=== PATIENT | male | born 1985 | race Caucasian/White ===

== ENCOUNTER 2018-03-27 07:21 | Emergency (ER) | payer MEDICAID, OTHER ==
[2018-03-27 07:30] VITALS: BMI 23.8
[2018-03-27 07:38] VITALS: RESP 18
--- NOTE | 2018-03-27 07:38 | ED PDOC ---
Arrival/HPI - General Chief Complaint: Eye Problem Time Seen by Provider: 03/27/18 07:31 Historian: Patient - History of Present Illness Narrative History of Present Illness (Text): 03/27/18 07:38 A 33 year old male, with no significant past medical history, presents to the emergency department with a complaint of mild burning sensation to his face since yesterday. He states that he woke up in the middle of the night with all ergy like symptoms and took Benadryl at around 1 AM. He reports that he woke up this morning with swelling to the left upper eyelid. The patient notes that he does not smoke or drink. The patient denies fevers, chills, headache, dizziness, visual disturbances,, sore throat, cough, congestion, chest pain, shortness of breath, dyspnea on exertion, abdominal pain, nausea, vomiting, diarrhea, neck/back pain, urinary/bowel changes or any other complaint. Time/Duration: Other (Yesterday) Symptom Onset: Sudden Symptom Course: Worsening Activities at Onset: Rest, Light Context: Home Associated Symptoms (Text): 03/27/18 08:14 No bites. He has never experienced this previously. Past Medical History - Provider Review Nursing Documentation Reviewed: Yes - Infectious Disease Hx of Infectious Diseases: None - Tetanus Immunization Tetanus Immunization: Unknown - Cardiac Hx Heart Murmur: Yes - Pulmonary Hx Asthma: Yes Other/Comment: collapsed lung - Psychiatric Hx Substance Use: No - Past Surgical History Past Surgical History: No Previous - Surgical History Hx Orthopedic Surgery: Yes (right arm fx) Other/Comment: left lung - Anesthesia Hx Anesthesia: Yes Hx Anesthesia Reactions: No Hx Malignant Hyperthermia: No - Suicidal Assessment Feels Threatened In Home Enviroment: No Family/Social History - Physician Review Nursing Documentation Reviewed: Yes Family/Social History: No Known Family HX Smoking Status: Never Smoked Hx Alcohol Use: No Hx Substance Use: No Hx Substance Use Treatment: No Allergies/Home Meds Allergies/Adverse Reactions: Allergies No Known Allergies Allergy (Verified 11/12/15 17:49) Review of Systems - Physician Review All systems were reviewed & negative as marked: Yes - Review of Systems Constitutional: absent: Fevers Eyes: Other (Swelling to the left upper eyelid.). absent: Vision Changes ENT: absent: Sore Throat, Sinus Congestion Respiratory: absent: SOB, Cough Cardiovascular: absent: Chest Pain, [place] Gastrointestinal: absent: Abdominal Pain, Stool Changes, Diarrhea, Nausea, Vomiting Genitourinary Male: absent: Urinary Output Changes Musculoskeletal: absent: Back Pain, Neck Pain Neurological: absent: Headache, Dizziness Physical Exam Temperature: Afebrile Blood Pressure: Normal Pulse: Regular Respiratory Rate: Normal Appearance: Positive for: Well-Appearing, Non-Toxic, Comfortable Pain Distress: None Mental Status: Positive for: Alert and Oriented X 3 - Systems Exam Head: Present: Atraumatic, Normocephalic Pupils: Present: PERRL Extroacular Muscles: Present: EOMI Conjunctiva: Present: Normal Ears: Present: NORMAL TM, Normal Canal. No: Erythema, TM Bulging Mouth: Present: Moist Mucous Membranes Pharnyx: No: ERYTHEMA, EXUDATE, TONSILS ENLARGED, Peritonsilar Swelling, Uvular Deviation, Muffled/Hoarse Voice, Strider, Soft Palate/Uvular Edema Neck: Present: Normal Range of Motion Respiratory/Chest: Present: Clear to Auscultation, Good Air Exchange. No: Respiratory Distress, Accessory Muscle Use Cardiovascular: Present: Regular Rate and Rhythm, Normal S1, S2. No: Murmurs Abdomen: No: Tenderness, Distention, Peritoneal Signs Back: Present: Normal Inspection Upper Extremity: Present: Normal Inspection. No: Cyanosis, Edema Lower Extremity: Present: Normal Inspection. No: Edema Neurological: Present: GCS=15, CN II-XII Intact, Speech Normal Skin: Present: Warm, Dry, Rashes (Mildly erythematous, blanching, flat rash over the entire face with swelling of the left upper eyelid. Rash not on any other skin areas.) Psychiatric: Present: Alert, Oriented x 3, Normal Insight, Normal Concentration Medical Decision Making ED Course and Treatment: 03/27/18 07:46 Impression: A 33 year old male presents to the emergency department with a complaint of left upper eyelid swelling. Plan: -- Labs -- Reassess and disposition Prior Visits: Notes and results from previous visits were reviewed. Progress Notes: 03/27/18 08:15 Unclear if this represents an infectious process, or more likely an allergic process. 03/27/18 09:03 CBC is normal. This appears to be an allergic reaction. Patient will be treated with antihistamines and steroids. Ice and follow-up with PMD. Follow up in ER as needed. - Lab Interpretations I have reviewed the lab results: Yes - Scribe Statement The provider has reviewed the documentation as recorded by the Scribe Angi Bob Provider Scribe Attestation: All medical record entries made by the Scribe were at my direction and personally dictated by me. I have reviewed the chart and agree that the record accurately reflects my personal performance of the history, physical exam, medical decision making, and the department course for this patient. I have also personally directed, reviewed, and agree with the discharge instructions and disposition. Disposition/Present on Arrival - Present on Arrival Any Indicators Present on Arrival: No History of DVT/PE: No History of Uncontrolled Diabetes: No Urinary Catheter: No History of Decub. Ulcer: No History Surgical Site Infection Following: None - Disposition Have Diagnosis and Disposition been Completed?: Yes Diagnosis: Allergic reaction Disposition: HOME/ ROUTINE Disposition Time: 09:03 Patient Plan: Discharge Condition: GOOD Discharge Instructions (ExitCare): Skin Rash, Hives Additional Instructions: Ice. Benadryl [id number] as directed on bottle. Follow-up with PMD. Follow up in ER as needed. Prescriptions: Prednisone [Deltasone] 20 mg PO DAILY #5 tablet Referrals: PCP,NO [Primary Care Provider] - Follow up with primary Forms: Plored (Scottish)
[2018-03-27 08:10] LABS: BASO # 0.04 K/mm3 (0.0-2.0); BASO % 0.7 % (0.0-3.0); EOS # 0.6 (0.0-0.7); EOS % 10.5 % (1.5-5.0); GRAN # 3.31 (1.4-6.5); GRAN % 55.8 % (50.0-68.0); HEMOGLOBIN 13.9 g/dL (14.0-18.0); LYMPH # 1.5 (1.2-3.4); LYMPH % 24.7 % (22.0-35.0); MEAN CELL VOLUME 80.2 fl (80.0-105.0); MEAN CORPUSCULAR HEMOGLOBIN 27.2 pg (25.0-35.0); MEAN CORPUSCULAR HGB CONC 33.9 g/dl (31.0-37.0); MEAN PLATELET VOLUME 10.4 fl (7.0-11.0); MONO # 0.5 (0.1-0.6); MONO % 8.3 % (1.0-6.0); RBC 5.11 10^6/uL (3.5-6.1); RED CELL DISTRIBUTION WIDTH 12.8 % (11.5-14.5); WHITE BLOOD COUNT 5.9 10^3/ul (4.5-11.0)
[2018-03-27 09:20] VITALS: BP 132/76; PULSE 75; TEMP 98.6; O2SAT 96
== END 2018-03-27 09:19 | disposition home or self-care (01) ==
LOC: ED 07:21
DX: T78.49XA Other allergy, initial encounter (principal); X58.XXXA Exposure to other specified factors, initial encounter